=== PATIENT | female | born 1960 | race Caucasian/White ===

== ENCOUNTER 2020-12-24 15:06 | Emergency (ER) | payer OTHER ==
[~2020-12-24 15:06] MED LIST: ACIDOPHILUS1 EAC4 PO; BLACK COHOSH160 MG PO; IBUPROFEN400 MG PO; NORCO 7.5-3251 EACH PO
== END 2020-12-24 16:32 | disposition home or self-care (01) ==
LOC: ER1 15:06
DX: S63.91XA Sprain of unspecified part of right wrist and hand, initial encounter (principal); Z98.890 Other specified postprocedural states; V49.40XA Driver injured in collision with unspecified motor vehicles in traffic accident, initial encounter; Y92.410 Unspecified street and highway as the place of occurrence of the external cause
CPT/HCPCS: 73130; 99283

== ENCOUNTER → 2021-08-15 | Outpatient (CLI) | payer BC ==
[2021-08-15 09:25] LABS: HEMOGLOBIN 15.1 gm/dl (12.3-15.3); RED BLOOD COUNT 4.7 M/UL (4.00-5.10); WHITE BLOOD COUNT 5.3 K/UL (4.5-11.0)
[2021-08-15 09:48] LABS: BUN/CREATININE RATIO 19 (0-10)
== END ==
LOC: LAB 09:05
PROVIDERS: Physician Assistant
DX: R73.9 Hyperglycemia, unspecified (principal); E55.9 Vitamin D deficiency, unspecified; E66.3 Overweight; K76.0 Fatty (change of) liver, not elsewhere classified; L30.9 Dermatitis, unspecified
CPT/HCPCS: 36415; 80053; 80061; 83036; 84443; 85027

== ENCOUNTER 2022-07-05 18:47 | Emergency (ER) | payer OTHER ==
[2022-07-05 20:12] LABS: RED BLOOD COUNT 4.14 M/UL (4.00-5.10); WHITE BLOOD COUNT 7.3 K/UL (4.5-11.0)
[2022-07-05 20:39] LABS: BUN/CREATININE RATIO 23 (0-10)
[2022-07-06] MEDS ORDERED: PREDNISONE 50 M50 MG PO (16:45)
== END 2022-07-05 23:40 | disposition home or self-care (01) ==
LOC: ER1 18:47
PROVIDERS: Physician Assistant
DX: S16.1XXA Strain of muscle, fascia and tendon at neck level, initial encounter (principal); S20.212A Contusion of left front wall of thorax, initial encounter; Z90.710 Acquired absence of both cervix and uterus; V89.2XXA Person injured in unspecified motor-vehicle accident, traffic, initial encounter; Y92.410 Unspecified street and highway as the place of occurrence of the external cause
CPT/HCPCS: 70450; 70486; 71260; 72125; 80053; 82550; 82553; 83690; 84484; 85025; 93005; 99284; Q9967

== ENCOUNTER 2022-07-06 16:02 | Emergency (ER) | payer BC ==
[2022-07-06] MEDS ORDERED: PREDNISONE 50 M50 MG PO (16:45)
== END 2022-07-06 16:51 | disposition home or self-care (01) ==
LOC: ER1 16:02
DX: L50.9 Urticaria, unspecified (principal)
CPT/HCPCS: 99282